=== PATIENT | female | born 1990 | race Caucasian/White ===

== ENCOUNTER 2024-11-08 08:22 | Emergency (ER) | payer OTHER ==
[~2024-11-08] VITALS: Ht 160 cm; Wt 70.0 kg
[2024-11-08] MEDS ORDERED: HYDROCODONE/ACETA 5/325 TAB PO ONE (08:45)
[2024-11-08] MEDS ORDERED: AMOXICILLIN/CLAVULANATE K 875 MG TAB PO ONE (08:45)
[2024-11-08] MEDS ORDERED: IBUPROFEN 600 MG TAB PO ONE (08:45)
[2024-11-08] MEDS ORDERED: HYDROCODON-ACE1 EA11 PO (09:24)
[2024-11-08] MEDS ORDERED: AMOX TR-K CLV1 EAC1 PO (09:24)
[2024-11-08 10:10] VITALS: BP 113/88
== END 2024-11-08 10:10 | disposition home or self-care (01) ==
LOC: ED 08:22
DX: S61.451A Open bite of right hand, initial encounter (principal); S61.452A Open bite of left hand, initial encounter; W54.0XXA Bitten by dog, initial encounter
CPT/HCPCS: 99283; A9270

== ENCOUNTER 2024-11-10 13:50 | Emergency (ER) | payer OTHER ==
[~2024-11-10] VITALS: Ht 160 cm; Wt 74.2 kg
[~2024-11-10 13:50] MED LIST: AMOX TR-K CLV1 EAC1 PO; HYDROCODON-ACE1 EA11 PO
--- OUTSIDE RECORDS SUMMARY | 2024-11-10 13:53 | XMS ---
PreManage Notification: GISELLA LUCIANO [employer] Worker Events No recent Security Events currently on file CRITERIA MET - - 2 Visits in 30 Days CARE PROVIDERS [facility]: [facility] Current FAMILY PHONE: [phone] PARVEEN HARRY [facility] Current PHONE: Unknown Shana has no Care Guidelines for this patient. [facility] VISIT COUNT ([address] 2 [facility] TOTAL 2 NOTE: Visits indicate total known visits. ED/UCC VISIT TRACKING (12 MO.) 11/10/2024 13:50 [facility] TYPE: Emergency COMPLAINT: - SEIZURE 11/08/2024 08:22 [facility] TYPE: Emergency COMPLAINT: - DOG BITE DIAGNOSES: - Bitten by dog, initial encounter - Open bite of left hand, initial encounter - Open bite of right hand, initial encounter INPATIENT VISIT TRACKING (12 MO.) No inpatient visits to display in this time frame [email or web address]
[2024-11-10 14:41] LABS: BASOPHILS 0.5 % (0-2); EOSINOPHILS 2.2 % (0-6); HEMATOCRIT 38.7 % (35.0-50.0); HEMOGLOBIN 13.2 g/dL (12.0-18.0); LYMPHOCYTES 10.7 % (24-44); MCH 29.3 (27-36); MCV 86.2 fl (81-99); MONOCYTES 6.5 % (0-12); NEUTROPHILS 80.1 % (39-80); PLATELET COUNT 309 K/uL (140-440); RBC 4.49 M/ul (4.3-5.7); RDW 13.9 (10.5-15.0)
[2024-11-10 15:01] LABS: ALBUMIN 3.3 g/dL (3.4-5.0); ALBUMIN/GLOBULIN RATIO 0.97 (1.1-2.4); BILIRUBIN, TOTAL 0.4 mg/dL (0.2-1.0); BUN/CREATININE RATIO 12.37 (6.0-28.6); CALCIUM 8.5 mg/dL (8.5-10.1); CREATININE, SERUM 0.97 mg/dL (0.55-1.02); MAGNESIUM 1.9 mg/dL (1.8-2.4); PROTEIN, TOTAL 6.7 g/dL (6.4-8.2)
[2024-11-10 15:07] VITALS: BP 100/58
--- NOTE | 2024-11-10 22:30 | EKG ---
[facility] [address] [place] [address] Signed Normal sinus rhythm Normal ECG No previous ECGs available Confirmed by Ruddy Harmon MD () on 11/10/2024 10:30:14 PM Electronically Signed By: RUDDY HARMON MD 11/10/242229 PATIENT NAME: GISELLA LUCIANO Electrocardiogram DATE OF : 88 PHYSICIAN: RUDDY HARMON MD REPORT #: [id number] REPORT IS CONFIDENTIAL AND NOT TO BE RELEASED WITHOUT AUTHORIZATION
== END 2024-11-10 15:08 | disposition home or self-care (01) ==
LOC: ED 13:50
PROVIDERS: Emergency Medicine
DX: R55 Syncope and collapse (principal)
CPT/HCPCS: 36415; 80053; 83735; 84484; 84703; 85025; 93005; 93010; 99284